=== PATIENT | female | born 1985 | race Caucasian/White ===

== ENCOUNTER 2017-09-26 09:34 | Inpatient (IN) | payer OTHER ==
[2017-09-26] VITALS (13 sets, daily range): BP systolic 124–147; BP diastolic 68–79
[~2017-09-26] VITALS: Ht 167.6 cm; Wt 106.6 kg
[~2017-09-26 09:34] MED LIST: PERCOCET 5/31 TABLET PO; PRILOSEC40 MG PO; Theragran PO; Vicodin,Norco 5/325 PO; XYZAL5 MG PO; ZOFRAN ODT4 MG PO; celeBREX PO
[2017-09-26 10:28] LABS: BASOPHIL (%) 0.2 % (0-1); EOSINOPHIL (%) 0.6 % (0-5); HEMATOCRIT 16.4 % (36.0-46.0); HEMOGLOBIN 5.2 G/DL (11.9-15.5); IMMATURE GRANULOCYTE (%) 0.8 % (0.0-0.7); LYMPHOCYTE (%) 23.1 % (15-42); LYMPHOCYTE COUNT 1.5 K/uL (1.0-2.8); MCH 23.6 PG (29.0-34.0); MCHC 31.7 G/DL (30.0-36.0); MCV 74.5 FL (83-99); MONOCYTE (%) 5.9 % (3-12); MONOCYTE COUNT 0.4 K/uL (0-0.8); NEUTROPHIL (%) 69.4 % (45-76); NEUTROPHIL COUNT 4.4 K/uL (1.8-6.4); PLATELET COUNT 368 K/uL (156-360); RBC DIS.WIDTH-SD 43.4 % (39-53); WHITE BLOOD COUNT 6.3 K/uL (4.1-10.2)
[2017-09-26 10:29] LABS: INTER. NORMALIZED RATIO 1.2
[2017-09-26 10:55] LABS: CHLORIDE 110 MEQ/L (99-109); CREATININE 0.5 MG/DL (0.6-1.3); GFR ESTIMATE (CALCULATED) > 59 mL/min/; GLUCOSE 118 mg/dL (70-99); POTASSIUM 4.1 MEQ/L (3.7-5.4); SODIUM 142 MEQ/L (136-147); UREA NITROGEN (BUN) 20 mg/dL (9-23)
[2017-09-26] MEDS ORDERED: GLUCOPHAGE500 MG PO (11:13)
[2017-09-26] MEDS ORDERED: ZYRTEC10 M3 PO (11:14)
[2017-09-27] VITALS (16 sets, daily range): BP systolic 118–153; BP diastolic 67–95
[2017-09-27 00:55] LABS: HEMATOCRIT 22.4 % (36.0-46.0); HEMOGLOBIN 7.5 G/DL (11.9-15.5)
[2017-09-27 06:53] LABS: BASOPHIL (%) 0.4 % (0-1); EOSINOPHIL (%) 1.6 % (0-5); EOSINOPHIL COUNT 0.2 K/uL (0-0.3); HEMATOCRIT 27.1 % (36.0-46.0); IMMATURE GRANULOCYTE (%) 0.8 % (0.0-0.7); LYMPHOCYTE (%) 26.2 % (15-42); LYMPHOCYTE COUNT 2.4 K/uL (1.0-2.8); MCH 26.4 PG (29.0-34.0); MCHC 32.8 G/DL (30.0-36.0); MCV 80.4 FL (83-99); MONOCYTE (%) 5.7 % (3-12); MONOCYTE COUNT 0.5 K/uL (0-0.8); NEUTROPHIL (%) 65.3 % (45-76); NEUTROPHIL COUNT 6.1 K/uL (1.8-6.4); PLATELET COUNT 342 K/uL (156-360); RBC DIS.WIDTH-CV 16.8 % (11.8-14.6); RBC DIS.WIDTH-SD 49.3 % (39-53); WHITE BLOOD COUNT 9.3 K/uL (4.1-10.2)
[2017-09-27 07:12] LABS: HEMOGLOBIN 8.9 G/DL (11.9-15.5); RED BLOOD COUNT 3.37 M/uL (3.80-5.20)
[2017-09-27 07:15] LABS: CHLORIDE 108 MEQ/L (99-109); CREATININE 0.6 MG/DL (0.6-1.3); GFR ESTIMATE (CALCULATED) > 59 mL/min/; GLUCOSE 102 mg/dL (70-99); POTASSIUM 3.7 MEQ/L (3.7-5.4); SODIUM 138 MEQ/L (136-147); UREA NITROGEN (BUN) 9 mg/dL (9-23)
[2017-09-27 19:51] LABS: HEMATOCRIT 27.7 % (36.0-46.0); HEMOGLOBIN 9.4 G/DL (11.9-15.5); MCV 79.4 FL (83-99)
[2017-09-28 03:45] VITALS: BP 121/72
[2017-09-28 06:28] LABS: HEMATOCRIT 30.9 % (36.0-46.0); MCH 26.2 PG (29.0-34.0); MCHC 32.4 G/DL (30.0-36.0); MCV 80.9 FL (83-99); PLATELET COUNT 404 K/uL (156-360); RBC DIS.WIDTH-CV 16.6 % (11.8-14.6); RBC DIS.WIDTH-SD 48.9 % (39-53); RED BLOOD COUNT 3.82 M/uL (3.80-5.20)
[2017-09-28 06:39] LABS: CHLORIDE 108 MEQ/L (99-109); CREATININE 0.7 MG/DL (0.6-1.3); GFR ESTIMATE (CALCULATED) > 59 mL/min/; GLUCOSE 101 mg/dL (70-99); POTASSIUM 3.8 MEQ/L (3.7-5.4); SODIUM 142 MEQ/L (136-147); UREA NITROGEN (BUN) 7 mg/dL (9-23)
[2017-09-28 07:59] VITALS: BP 118/65
[2017-09-28 11:50] VITALS: BP 128/71
[2017-09-28] MEDS ORDERED: CARAFATE100 MG/ML PO (12:56)
[2017-09-28] MEDS ORDERED: PROTONIX40 MG PO (12:56)
[2017-09-28] MEDS ORDERED: SKELAXIN800 MG PO (12:56)
== END 2017-09-28 14:10 | disposition home or self-care (01) | DRG 379 ==
LOC: EME 09:34 → 2EAST 10:45 → EDOF 10:45 → 2EAST 10:45 → ENRESERV 10:46 → 2EAST 14:16
PROVIDERS: Emergency Medicine; Hospitalist; Internal Medicine; Internal Medicine Gastroenterology
PROC: 30233N1 Transfusion of Nonautologous Red Blood Cells into Peripheral Vein, Percutaneous Approach (ICD-10-PCS; 2017-09-26)
PROC: 0DJ08ZZ Inspection of Upper Intestinal Tract, Via Natural or Artificial Opening Endoscopic (ICD-10-PCS; principal; 2017-09-27)
DX: K92.2 Gastrointestinal hemorrhage, unspecified (principal); T39.395A Adverse effect of other nonsteroidal anti-inflammatory drugs [NSAID], initial encounter; Z68.37 Body mass index [BMI] 37.0-37.9, adult; E66.9 Obesity, unspecified; D50.0 Iron deficiency anemia secondary to blood loss (chronic); E11.9 Type 2 diabetes mellitus without complications; E28.2 Polycystic ovarian syndrome; M54.30 Sciatica, unspecified side; Z98.84 Bariatric surgery status
CPT/HCPCS: 74177; 80048; 85014; 85018; 85025; 85027; 85610; 86850; 86900; 86901; 86920; 99281; 99285; C9113; J1170; J2250; J2405; J7030; J7042; J7050; P9016

== ENCOUNTER 2017-10-03 12:06 | Emergency (ER) | payer OTHER ==
[~2017-10-03] VITALS: Ht 165.1 cm; Wt 103.2 kg
[~2017-10-03 12:06] MED LIST changes: +CARAFATE100 MG/ML PO; +GLUCOPHAGE500 MG PO; +PROTONIX40 MG PO; +SKELAXIN800 MG PO; +ZYRTEC10 M3 PO
[2017-10-03] MEDS ORDERED: PERCOCET 10/1 TABLET PO (14:43)
[2017-10-03 15:02] VITALS: BP 147/87
== END 2017-10-03 15:03 | disposition home or self-care (01) ==
LOC: EME 12:06
DX: M54.41 Lumbago with sciatica, right side (principal); E28.2 Polycystic ovarian syndrome; Z98.84 Bariatric surgery status; Z79.84 Long term (current) use of oral hypoglycemic drugs; Z91.010 Allergy to peanuts
CPT/HCPCS: 99281; 99284